=== PATIENT | female | born 1950 | race Caucasian/White ===

== ENCOUNTER 2016-10-25 05:06 | Inpatient (IN) | payer MEDICARE ==
[2016-10-12 13:29] LABS: BASOPHILS 0.3 %; BASOPHILS ABSOLUTE 0.03 10/3/uL (0.0-0.16); EOSINOPHILS 3.2 %; EOSINOPHILS ABSOLUTE 0.29 10/3/uL (0.0-0.53); IMMATURE GRANULOCYTES 0.3 %; IMMATURE GRANULOCYTES ABSOLUTE 0.03 10/3/uL (0.0-0.11); LYMPHOCYTES 20.8 %; LYMPHOCYTES ABSOLUTE 1.91 10/3/uL (0.67-4.30); MEAN CORPUSCULAR HEMOGLOB 31.9 pg (26.0-34.0); MEAN CORPUSCULAR VOLUME 96.8 fL (80-100); MEAN PLATELET VOLUME 9.2 fL (9.2-13.0); MONOCYTES 7.1 %; MONOCYTES ABSOLUTE 0.65 10/3/uL (0.21-1.20); NEUTROPHILS 68.3 %; NEUTROPHILS ABSOLUTE 6.27 10/3/uL (2.02-8.40); PLATELET COUNT 310 10/3/uL (150-400); RBC DISTRIBUTION WIDTH 13.4 % (12.0-16.0); RED CELL COUNT 4.64 10/6/uL (4.0-5.6); WHITE BLOOD CELLS 9.2 10/3/uL (4.5-10.5)
[2016-10-12 13:30] LABS: HEMATOCRIT 44.9 % (36.0-48.0); HEMOGLOBIN 14.8 g/dL (12.0-16.0); MANUAL DIFF NO %
[2016-10-12 13:33] LABS: PROTIME (NOT ORD) 12.8 SEC (12.0-14.5)
[2016-10-12 13:35] LABS: ASCORBIC ACID (UR NOT ORDER) NEG (NEG); BILIRUBIN, URINE NEGATIVE (NEG); KETONE, URINE NEGATIVE (NEG); LEUKOCYTE ESTERASE(NOT OR MOD (NEG); WBC (NOT ORDERED) (RFLEX) 35 (0-5)
[2016-10-12 13:48] LABS: ALBUMIN 4.3 G/DL (3.5-5.0); CALCIUM, SERUM 9.8 MG/DL (8.5-10.4); CHLORIDE, SERUM 99 MMOL/L (96-112); CO2 (CARBON DIOXIDE) 30 MMOL/L (24-34); CREATININE 0.77 MG/DL (0.55-1.02); GFR AFRICAN AMERICAN 93 ML/MIN (>=60); GFR NON AFRICAN AMERICAN 80 ML/MIN (>=60); POTASSIUM, SERUM 4.9 MMOL/L (3.5-5.3); SGOT(AST) 24 U/L (5-40); SGPT(ALT) 31 U/L (5-65); SODIUM, SERUM 135 MMOL/L (135-148); TOTAL BILIRUBIN 0.7 MG/DL (0-1.2)
[2016-10-12 13:49] LABS: A/G RATIO 1.6 (0.7-1.9); ALKALINE PHOSPHATASE 119 U/L (45-117); BUN (BLOOD UREA NITROGEN) 27 MG/DL (6-23); GLOBULIN 2.7 G/DL (2.5-4.1); GLUCOSE, SERUM 94 MG/DL (60-99)
--- NOTE | ~2016-10-25 | DS ---
Discharge Summary [facility] [address] [place]. [address] NAME: ELISABETH RANDHAWA : 48 STATUS : DIS IN PAT#: [id number] AGE: 66 ADM/REG DATE : 10/25/16 MR#: [id number] REPORT SERV DATE: 11/01/16 DICTATED BY: ELIZABETH CAMARENA DATE: 11/01/16 REPORT STATUS : Draft TRANSCRIBED BY: ANA CRISTINA DATE: 11/01/16 Data Collection from hospitalization DISCHARGE DIAGNOSES: 1. Severe left knee degenerative joint disease. 2. Severe valgus deformity. 3. Osteoarthritis. 4. Obstructive sleep apnea. 5. History of melanoma. CONSULTATIONS: None. PROCEDURES PERFORMED: Left posterior stabilized total knee replacement, cemented, 10/25/2016. PATHOLOGY: Left knee arthroplasty, benign bone and cartilage with degenerative joint disease with cartilaginous fissuring, benign cartilaginous meniscus tissue, soft tissue and synovium with mild synovial hyperplasia, normal cellular bone marrow particles with trilineage hematopoiesis. MEDICATIONS: Lipitor 40 mg at bedtime; [place]gro[place] 25 mg daily; vitamin D3 1000 units twice daily; Colace 100 mg twice daily; ferrous sulfate 300 mg with breakfast and supper; Theragran tablet without minerals one daily; fish oil 1000 mg twice daily; Urocit-K 5 mEq twice daily; Aldactone 100 mg twice daily; Coumadin as directed, Ultram 50 mg three times daily, not while taking; Dilaudid 2 mg one or two every four to six hours as needed; Valium 5 mg every six hours as needed for spasms; and Zofran 4 mg every six hours as needed for nausea. CONDITION AT DISCHARGE: Upon discharge, she did appear to be doing well and had no complaints. DISPOSITION: She had been discharged home to continue a regular diet with activity as discussed. FOLLOWUP: She was to follow up with Telly Leos in [place] [facility] on 10/30/2016, follow up with myself in the [place] [facility] on 11/08/2016, follow up with [facility] in [place] on 10/29/2012 for physical therapy, follow up with [facility] in [place] on 10/29/2016 for lab work every Saturday or Saturday for six weeks. HOSPITAL COURSE: This 66-year-old female was seen in the clinic for followup status post right total knee arthroplasty on 07/03/2016 and she stated that she had been doing great. Her left knee was [id number] degenerative joint disease and she stated that she was ready to schedule surgery for her left knee. She was admitted for this and further treatment. Upon admission to the hospital, she had been taken to the operating room where she did undergo the above procedure. She tolerated this well and was transferred to the recovery room. On postop day #1, she did appear to be doing well. Her INR was at 1.1. Hemoglobin 12.3 and hematocrit 36.7. She had been evaluated by Physical Therapy and did appear to be doing well postoperatively. On postop day #2, she continued to do well, however, had Discharge Summary [address] [place]. [address] NAME: ELISABETH RANDHAWA : 48 STATUS : DIS IN PAT#: [id number] AGE: 66 ADM/REG DATE : 10/25/16 MR#: [id number] REPORT SERV DATE: 11/01/16 DICTATED BY: ELIZABETH CAMARENA DATE: 11/01/16 REPORT STATUS : Draft TRANSCRIBED BY: ANA CRISTINA DATE: 11/01/16 complaints of increased pain and muscle spasms. She was continued on physical therapy. Her INR was up to 1.7. She was continued on Lipitor. On postop day #3, her pain and left leg muscle spasms were better controlled and she appeared to be in no distress. She did remain in stable condition and was then discharged with the above instructions. Information collected by: Rush GaticaIVerenaT. I submit the above information as my discharge summary. RW/FLAKOL Sahara Camarena M.D. / [id number] CC: Odilon Vines MD
--- NOTE | ~2016-10-25 | OP ---
Record Of Operation [facility] [address] [place]. [address] NAME: ELISABETH RANDHAWA : 48 STATUS : ADM IN PAT#: [id number] AGE: 66 ADM/REG DATE : 10/25/16 MR#: [id number] REPORT SERV DATE: 10/25/16 DICTATED BY: ELIZABETH CAMARENA DATE: 10/25/16 REPORT STATUS : Draft TRANSCRIBED BY: MODRyan DATE: 10/25/16 DATE OF PROCEDURE: 10/25/2016 REOPERATIVE DIAGNOSIS: Severe left knee degenerative joint disease with severe valgus deformity. POSTOPERATIVE DIAGNOSIS: Severe left knee degenerative joint disease with severe valgus deformity. OPERATION: Left posterior stabilized total knee replacement, cemented. SIDE: Left. SIZE: See chart. ANESTHESIA: See chart. ESTIMATED BLOOD LOSS: About 10 mL. TOURNIQUET TIME: Approximately 1 hour and 10 minutes. COMPLICATIONS: None. SPECIMENS: Articular surfaces. PROCEDURE IN DETAIL: The patient was appropriately identified and marked. The operative side agreed with the consent form and it was checked by all members of the surgical team. The patient was taken to the operating room and anesthesia was induced per the anesthesiologist. The patient was carefully transferred to the operating table without incident. The patient received appropriate prophylactic antibiotics and a Georges catheter was placed in the standard sterile technique. The patient was then carefully positioned, padded, prepped and draped in the normal sterile fashion. The operative leg had been appropriately identified and checked by all members of the operating team against the consent form and found to be the correct limb. The patient's lower extremity was then exsanguinated with an Cuong wrap and a tourniquet was inflated to 350 mm/Hg. Sharp dissection was carried out through a straight midline longitudinal incision and electrocautery through the fat. Sharp quad splitting approach was carried out between about the medial 10 percent of the tendon and the lateral 90 percent of the tendon and down around the medial aspect of the patella and then 1 cm medial to the tibial tubercle. The patella was carefully everted and the posterior fat pad was excised and gentle MCL elevation was carried out off the proximal medial tibia subperiosteally. IM guide was placed in the distal femur after using the appropriate drill. The distal femoral cutting guide was held with 2 pins and the distal cut made. Meniscal fragments and the ACL and the PCL were excised with electrocautery, carefully staying anterior to the posterior fat pad. The proximal tibial alignment guide was set appropriately and the proximal tibial cut made. Spacer block verified full Record Of Operation [facility] [address] [place]. [address] NAME: ELISABETH RANDHAWA : 48 STATUS : ADM IN PAT#: [id number] AGE: 66 ADM/REG DATE : 10/25/16 MR#: [id number] REPORT SERV DATE: 10/25/16 DICTATED BY: ELIZABETH CAMARENA DATE: 10/25/16 REPORT STATUS : Draft TRANSCRIBED BY: MODRyan DATE: 10/25/16 extension with excellent mediolateral balance. Sizing guide was used to place 2 drill holes in the distal femur and the four-in-one cutting block was then placed, impacted and checked to be sure it would not notch with an bashir wing and it was held with 2 pins. The anterior cut, posterior cut, anterior chamfer and posterior chamfer cuts were made. The pins were removed and the block was removed. A posterior release was carried out with a curved 3/4 inch osteotome staying right on the bone posteriorly. The box-cut guide was then placed, impacted and held with 2 pins and a reciprocating saw was used to cut out the box. With the trial components in place, there was excellent medial/lateral balance. The patella was then measured with a caliper, cut first with an oscillating saw and then reamed with a patella reamer. With the trial patella in place, there was excellent patellar tracking. Rotation was marked on the tibia and the tibia prepared with a drill and stamp chisel. All surfaces were then copiously irrigated with pulsatile lavage, carefully dried and then vacuum-mixed cement was pressurized with a cement gun in a doughy phase. The tibial component was placed, impacted and excess cement was removed. The cement was then pressurized in the femur and placed on the posterior runners of the femoral component, which was placed, impacted and excess cement removed and the knee was brought out into extension on a trial spacer. The cement was then pressurized in the patella. Patellar component was then placed, clamped and excess cement was removed. Once all cement was hardened, the knee was taken through range of motion. Further extruded cement was removed with a small osteotome. Then based on the trial inserts, we decided on the actual insert, which was placed in the standard fashion and held with a locking mechanism. The knee was then copiously irrigated and then closed in a layered fashion over a medium Hemovac drain superolaterally with interrupted #1 in the deep fascia, 2-0 subcutaneous and mona in the skin. The wounds were dressed sterilely and the tourniquet was deflated. The patient was then awakened and taken to the postanesthesia care unit without incident. All counts were correct at the end of the case. She has had severe valgus deformity. Once I got her valgus deformity straightened out despite having extremely thin lateral bone cuts off the proximal tibia and distal femur, she had loosened up so much that I felt that she needed augmentation of the components, therefore, I used a size 4 left narrow Sigma with 12 mm distal augments to balance her out correctly. I was very pleased with this reconstruction, but that the need to the extra bone. It should also be noted that in the recover room she had 5/5 toe dorsi and plantar flexors with some mild weakness in her ankle dorsiflexion. No evidence of peroneal nerve injury. WTB/MODL Sahara Camarena M.D. / [id number] Record Of Operation [address] [address] NAME: ELISABETH RANDHAWA : 48 STATUS : ADM IN PAT#: [id number] AGE: 66 ADM/REG DATE : 10/25/16 MR#: [id number] REPORT SERV DATE: 10/25/16 DICTATED BY: ELIZABETH CAMARENA DATE: 10/25/16 REPORT STATUS : Draft TRANSCRIBED BY: MODL DATE: 10/25/16 CC: Sahara Camarena M.D.
[~2016-10-25 05:06] MED LIST: AMB10 PO; ASAB PO; C5; FISH-EPA1000 MG PO; HYGROTON 25 MG25 MG PO; LIPITOR40 PO; MOBIC15 MG PO; OXYCOD PO; SPIRO50 PO; TUMERIC PO; ULTRAM50 PO; UROCIT-K 5540 MG PO; VITAMIN D31000 UNIT PO; ZOFRAN4 PO; [UNRECOGNIZED DRUG - OTHER] PO
[2016-10-26 03:45] LABS: HEMOGLOBIN 12.3 g/dL (12.0-16.0)
[2016-10-26 03:51] LABS: HEMATOCRIT 36.7 % (36.0-48.0)
[2016-10-26 03:57] LABS: INTERNATIONAL NORMAL RATI 1.1 UNITS (-); PROTIME (NOT ORD) 14.2 SEC (12.0-14.5)
[2016-10-26 04:13] LABS: CALCIUM, SERUM 9.1 MG/DL (8.5-10.4); CHLORIDE, SERUM 99 MMOL/L (96-112); CO2 (CARBON DIOXIDE) 28 MMOL/L (24-34); CREATININE 0.89 MG/DL (0.55-1.02); GFR AFRICAN AMERICAN 78 ML/MIN (>=60); GFR NON AFRICAN AMERICAN 67 ML/MIN (>=60); POTASSIUM, SERUM 4.1 MMOL/L (3.5-5.3); SODIUM, SERUM 137 MMOL/L (135-148)
[2016-10-26 04:19] LABS: BUN (BLOOD UREA NITROGEN) 18 MG/DL (6-23); GLUCOSE, SERUM 147 MG/DL (60-99)
[2016-10-27 06:25] LABS: INTERNATIONAL NORMAL RATI 1.7 UNITS (-); PROTIME (NOT ORD) 19.5 SEC (12.0-14.5)
[2016-10-27 06:28] LABS: HEMOGLOBIN 10.2 g/dL (12.0-16.0)
[2016-10-27 06:31] LABS: HEMATOCRIT 30.5 % (36.0-48.0)
[2016-10-28 06:52] LABS: HEMATOCRIT 31.4 % (36.0-48.0); HEMOGLOBIN 10.7 g/dL (12.0-16.0)
[2016-10-28 06:59] LABS: INTERNATIONAL NORMAL RATI 1.5 UNITS (-); PROTIME (NOT ORD) 17.7 SEC (12.0-14.5)
[2016-10-28] MEDS ORDERED: V5 PO (10:44)
[2016-10-28] MEDS ORDERED: ZOFRAN4 PO (10:45)
[2016-10-28] MEDS ORDERED: DIL2TAB PO (10:45)
[2016-10-28] MEDS ORDERED: C5 PO (10:46)
== END 2016-10-28 13:39 | disposition home or self-care (01) | DRG 470 ==
LOC: SDC/OF 05:06 → PACU 09:37 → 3JRC 14:05
PROVIDERS: Specialist
PROC: 3E0T3CZ (ICD-10-PCS; 2016-10-25)
PROC: 0SRD0J9 Replacement of Left Knee Joint with Synthetic Substitute, Cemented, Open Approach (ICD-10-PCS; principal; 2016-10-25 06:45)
DX: M17.12 Unilateral primary osteoarthritis, left knee (principal); E78.5 Hyperlipidemia, unspecified; Z87.442 Personal history of urinary calculi; G47.33 Obstructive sleep apnea (adult) (pediatric); E66.9 Obesity, unspecified; Z68.39 Body mass index [BMI] 39.0-39.9, adult
CPT/HCPCS: 80048; 80053; 81001; 85014; 85018; 85025; 85610; 87086; 87641; 88305; 88311; 93005; 94660; 97110-GP; 97116-GP; 97150-GP; 97162-GP; 97165-GO; A9270-GY; C1776; G8978-CK-GP; G8979-CI-GP; G8987-CJ-GO; G8988-CJ-GO; G8989-CJ-GO; J0690; J1170; J1885; J2250; J2270; J2405; J2710; J2795; J3010